=== PATIENT | female | born 1970 | race Caucasian/White ===

== ENCOUNTER 2016-10-25 22:12 | Emergency (ER) | payer OTHER ==
[~2016-10-25] VITALS: Ht 162.6 cm; Wt 66.0 kg
[~2016-10-25 22:12] MED LIST: CEPH500C PO
[2016-10-25 22:18] VITALS: Ht 162.6 cm; Wt 66.0 kg
[2016-10-26] MEDS ORDERED: CEFEPIME 2GM/50 ML (PMX) 50 ML IVPB STA (03:16)
[2016-10-26] MEDS ORDERED: SODIUM CHLORIDE 0.9% 1L BAG IV* STA (03:16)
--- NOTE | 2016-10-26 03:32 | RADRPT ---
PROCEDURE: XR Chest. CLINICAL INDICATION: Possible sepsis. TECHNIQUE: Single frontal view of the chest was obtained COMPARISON: None FINDINGS: The heart and mediastinum are within normal limits. The lungs are clear. There is no pleural effusion or pneumothorax. IMPRESSION: No acute disease. RPTAT: [facility] Physician Santy Date Time Electronically viewed and signed by Campbell Garcia Physician on 10/26/2016 03:32 RS/
[2016-10-26 04:24] LABS: ALBUMIN 4.5 g/dl (3.3-4.9); BASOPHILS % 0.8 % (0.0-2.0); CHLORIDE 101 mmol/L (97-110); EOSINOPHILS % 0.4 % (0.0-7.0); HEMATOCRIT 39.9 % (37.0-47.0); HEMOGLOBIN 13.3 g/dl (12.0-16.0); LYMPHOCYTES # 0.5 10^3/ul (0.8-2.9); LYMPHOCYTES % 9.8 % (15.0-51.0); MEAN CORPUSCULAR HEMOGLOBIN 27.3 pg (29.0-33.0); MEAN CORPUSCULAR HGB CONC 33.3 g/dl (32.0-37.0); MEAN CORPUSCULAR VOLUME 81.9 fl (82.0-101.0); MEAN PLATELET VOLUME 10.4 fl (7.4-10.4); MONOCYTE # 0.2 10^3/ul (0.3-0.9); MONOCYTES % 2.8 % (0.0-11.0); NEUTROPHIL # 4.7 10^3/ul (1.6-7.5); NEUTROPHILS % 86.2 % (39.0-77.0); PLATELET COUNT 276 10^3/UL (140-440); POTASSIUM 4.3 mmol/L (3.5-5.1); RED BLOOD COUNT 4.87 10^6/ul (4.20-5.40); RED CELL DISTRIBUTION WIDTH 14.2 % (11.5-14.5); SODIUM 145 mmol/L (135-144); UNCORRECTED WBC 5.5 10^3/ul (4.8-10.8); WHITE BLOOD COUNT 5.5 10^3/ul (4.8-10.8)
[2016-10-26 04:25] LABS: CONDITION 1; LH ANALYZER COMMENTS 1
[2016-10-26 04:26] LABS: CREATININE 0.52 mg/dl (0.44-1.00); INR 0.94; PROTIME 12.6 Sec (12.2-14.2)
[2016-10-26 04:27] LABS: ALANINE AMINOTRANSFERASE 37 IU/L (13-69); ALBUMIN/GLOBULIN RATIO 1.21; ALKALINE PHOSPHATASE 63 IU/L (42-121); ANION GAP 18 (8-16); ASPARTATE AMINO TRANSFERASE 34 IU/L (15-46); BILIRUBIN,INDIRECT 0.3 mg/dl (0-1.1); BILIRUBIN,TOTAL 0.3 mg/dl (0.2-1.3); BLOOD UREA NITROGEN 5 mg/dl (7-20); CALCIUM 9.5 mg/dl (8.4-10.2); CARBON DIOXIDE 30 mmol/L (21-31); GLUCOSE 113 mg/dl (70-220); TOTAL PROTEIN 8.2 g/dl (6.1-8.1)
[2016-10-26 04:37] LABS: ADD UMIC YES; URINE BILIRUBIN (Dip) NEGATIVE (NEGATIVE); URINE BLOOD (Dip) 1+ (NEGATIVE); URINE COLOR LT. YELLOW (YELLOW); URINE GLUCOSE (Dip) NEGATIVE (NEGATIVE); URINE KETONES (Dip) NEGATIVE (NEGATIVE); URINE LEUKOCYTE ESTERASE (Dip) NEGATIVE (NEGATIVE); URINE NITRITE (Dip) NEGATIVE (NEGATIVE); URINE TOTAL PROTEIN (Dip) NEGATIVE (NEGATIVE); URINE UROBILINOGEN (Dip) 0.2 E.U./dL (0.1-1.0)
[2016-10-26 04:39] LABS: TROPONIN-I < 0.012 ng/ml (0.00-0.12)
[2016-10-26 04:44] LABS: PARTIAL THROMBOPLASTIN TIME 27.2 Sec (25.0-35.0)
[2016-10-26 04:48] LABS: BACTERIA,URINE FEW; SQUAMOUS EPITHELIAL CELL,UR MODERATE
[2016-10-26 05:20] VITALS: BP 118/86; PULSE 70; RESP 20; TEMP 98.6
--- NOTE | 2016-10-26 05:24 | ERD ---
ER Documentation Chief Complaint Date/Time DATE: 10/26/16 TIME: 05:19 Chief Complaint sent by PMD for fever today, hx Rbreast ca taking chemotherapy HPI This 46-year-old female presents for temperature of 99.9 today. She is accompanied by her daughter. They were told to come the emergency room whenever they have a fever. Though she did not have a fever per se she came to the emergency room and just wants lab work. She does not want any antibiotics. She has no symptoms except for feeling a little bit weak which is the same she felt after her last chemotherapy. Denies any cough, chest pain, shortness of breath. Or any other pain. She has no dysuria. ROS All systems reviewed and are negative except as per history of present illness. Medications Home Meds Reported Medications Cephalexin* (Cephalexin*) 500 Mg Capsule, 500 MG PO Q8, #21 CAP 07/07/16 Allergies Allergies: Coded Allergies: No Known Allergy (Unverified , 07/07/16) PMhx/Soc History of Surgery: Yes (RIGHT MASTECTOMY 06/25, c/s) Anesthesia Reaction: No Hx Neurological Disorder: No Hx Respiratory Disorders: No Hx Cardiac Disorders: No Hx Psychiatric Problems: No Hx Miscellaneous Medical Probl: Yes (BREAST CA) Hx Alcohol Use: No Hx Substance Use: No Hx Tobacco Use: No Smoking Status: Never smoker Physical Exam Vitals Vital Signs Date Time Temp Pulse Resp B/P Pulse Ox O2 Delivery O2 Flow Rate FiO2 10/26/16 03:27 Nasal Cannula 2 10/26/16 02:57 99.3 116 20 119/88 100 Room Air 10/25/16 22:18 100.0 139 20 142/89 98 Physical Exam Const: [] Head: Atraumatic Eyes: Normal Conjunctiva ENT: Normal External Ears, Nose and Mouth. Neck: Full range of motion..~ No meningismus. Resp: Clear to auscultation bilaterally Cardio: Regular rate and rhythm, no murmurs Abd: Soft, non tender, non distended. Normal bowel sounds Skin: No petechiae or rashes Back: No midline or flank tenderness Ext: No cyanosis, or edema Neur: Awake and alert Psych: Normal Mood and Affect Result Diagram: 10/26/16 0343 10/26/16 0343 Results 24 hrs Laboratory Tests Test 10/26/16 03:43 Activated Partial Thromboplast Time 27.2Sec Alanine Aminotransferase (ALT/SGPT) 37IU/L Albumin 4.5g/dl Albumin/Globulin Ratio 1.21 Alkaline Phosphatase 63IU/L Anion Gap 18 Aspartate Amino Transf (AST/SGOT) 34IU/L Basophils # 0.010^3/ul Basophils % 0.8% Blood Morphology Comment Blood Urea Nitrogen 5mg/dl Calcium Level 9.5mg/dl Carbon Dioxide Level 30mmol/L Chloride Level 101mmol/L Creatinine 0.52mg/dl Direct Bilirubin 0.00mg/dl Eosinophils # 0.010^3/ul Eosinophils % 0.4% Globulin 3.70g/dl Glucose Level 113mg/dl Hematocrit 39.9% Hemoglobin 13.3g/dl INR International Normalized Ratio 0.94 Indirect Bilirubin 0.3mg/dl Lactic Acid Level 2.4mmol/L Lymphocytes # 0.510^3/ul Lymphocytes % 9.8% Mean Corpuscular Hemoglobin 27.3pg Mean Corpuscular Hemoglobin Concent 33.3g/dl Mean Corpuscular Volume 81.9fl Mean Platelet Volume 10.4fl Monocytes # 0.210^3/ul Monocytes % 2.8% Neutrophils # 4.710^3/ul Neutrophils % 86.2% Nucleated Red Blood Cells # 0.010^3/ul Nucleated Red Blood Cells % 0.0/100WBC Platelet Count 54579^3/UL Potassium Level 4.3mmol/L Prothrombin Time 12.6Sec Prothrombin Time Ratio 1.0 Red Blood Count 4.8710^6/ul Red Cell Distribution Width 14.2% Sodium Level 145mmol/L Total Bilirubin 0.3mg/dl Total Protein 8.2g/dl Troponin I < 0.012ng/ml Urine Bacteria FEW Urine Bilirubin NEGATIVE Urine Clarity CLEAR Urine Color LT. YELLOW Urine Glucose NEGATIVE% Urine Hemoglobin 1+ Urine Ketones NEGATIVE Urine Leukocyte Esterase NEGATIVE Urine Microscopic RBC 2-5/HPF Urine Microscopic WBC 0-2/HPF Urine Nitrite NEGATIVE Urine Specific [place] 1.010 Urine Squamous Epithelial Cells MODERATE Urine Total Protein NEGATIVE Urine Urobilinogen 0.2 E.U./dL Urine pH 6.5 White Blood Count 5.510^3/ul Current Medications Medications (Trade) Dose Ordered Sig/Simona Route PRN Reason Start Time Stop Time Status Last Admin Dose Admin Sodium Chloride 2050 ml 2,050 ml BOLUS OVER 2 HOURS STAT IV* 10/26/16 03:16 10/26/16 03:18 DC Cefepime HCl (Maxipime 2gm/50 ml (Pmx)) 50 ml @ 100 mls/hr ONCE STAT IVPB 10/26/16 03:16 10/26/16 03:45 DC Procedures/MDM Mild dehydration with slightly elevated lactic acid likely secondary to chemotherapy. Patient was initially refusing almost everything. She states that he did want lab work because of the fever to check for infection. I did caution her that with her immune system is suppressed from chemotherapy laboratories were not always revealed infection. She does have no evidence of urinary tract infection or pneumonia. Patient refused antibiotics and IV fluid. Stated she would prefer to just have the labs drawn and be called at home with any results. I talked her into staying for at least the results of the laboratories. Says that she has nausea medicine at home if she develops any nausea. Is currently taking good p.o. both solid and liquid. Discharging with copies of all of her laboratories and primary care follow-up in the next 2 days. I told her that she develops any concerning symptoms or has another elevated temperature she should return to the emergency room immediately. Chest x-ray interpretation: No acute process, no infiltrates, no widened mediastinum, no pneumothorax, no fractures Departure Diagnosis: Primary Impression: Dehydration Additional Impressions: Complication of chemotherapy Lactic acidosis Condition: Stable Patient Instructions: Dehydration Additional Instructions: Call your primary care doctor TOMORROW for an appointment during the next 1-2 days.See the doctor sooner or return here if your condition worsens before your appointment time. MELANIE MORA DO Oct 26, 2016 05:24
== END 2016-10-26 05:26 | disposition home or self-care (01) ==
LOC: E/R 22:12
DX: E86.0 Dehydration (principal); E87.2 Acidosis; T45.1X5A Adverse effect of antineoplastic and immunosuppressive drugs, initial encounter; C50.919 Malignant neoplasm of unspecified site of unspecified female breast
CPT/HCPCS: 36415; 71010; 80053; 81001; 83605; 84484; 85025; 85610; 85730; 87040; 87086; J7030; Z7502; 81003